=== PATIENT | male | born 1945 | race Caucasian/White ===

== ENCOUNTER → 2018-02-27 | Outpatient (CLI) | END | disposition home or self-care (01) ==

== ENCOUNTER 2018-10-13 21:33 | Emergency (ER) | payer MEDICARE, OTHER ==
[~2018-10-13] VITALS: Ht 165.1 cm; Wt 60.0 kg
[2018-10-13 21:34] VITALS: Ht 165.1 cm; Wt 60.0 kg
[2018-10-13] MEDS ORDERED: ONDANSETRON 4 MG INJ IV STA (23:40)
[2018-10-13] MEDS ORDERED: SOD CHLORIDE 0.9% 500 ML IV STA (23:40)
[2018-10-13] MEDS ORDERED: morphine 4 MG/ML VIAL IV STA (23:40)
[2018-10-14] MEDS ORDERED: morphine 4 MG/ML VIAL IV STA (00:19)
[2018-10-14] MEDS ORDERED: ONDANSETRON 4 MG INJ IV STA (00:19)
[2018-10-14] MEDS ORDERED: SOD CHLORIDE 0.9% 100 ML ONE (00:58)
[2018-10-14] MEDS ORDERED: IODIXANOL LOCM 100 ML BTL ONE (00:58)
[2018-10-14] MEDS ORDERED: HYDROmorphONE 0.5 MG/0.5 ML SYG IV STA (01:29)
[2018-10-14] MEDS ORDERED: PROM6.256 PO (02:20)
[2018-10-14] MEDS ORDERED: BENZ-5 PO (02:20)
[2018-10-14] MEDS ORDERED: ONDA8TAB83 PO (02:20)
[2018-10-14] MEDS ORDERED: TRAM50TA2 PO (02:20)
[2018-10-14] MEDS ORDERED: ALBU18HF INHALATION (02:20)
[2018-10-14] MEDS ORDERED: OMEP40CA6 PO (02:20)
[2018-10-14] MEDS ORDERED: ACYC800T PO (02:20)
[2018-10-14] MEDS ORDERED: METF500T9 PO (02:20)
[2018-10-14] MEDS ORDERED: MAGN400T27 PO (02:20)
[2018-10-14] MEDS ORDERED: ATRO INHALATION (02:21)
[2018-10-14] MEDS ORDERED: SITA100T11 PO (02:21)
[2018-10-14] MEDS ORDERED: DOCU-159 PO (02:21)
[2018-10-14] MEDS ORDERED: DIAZ5TAB PO (03:43)
[2018-10-14 03:55] VITALS: BP 108/63; PULSE 63; RESP 24
[2018-10-15] MEDS ORDERED: HYDR-4011 PO (12:27)
[2018-10-15] MEDS ORDERED: NALO4SPR NS (12:27)
--- NOTE | 2018-11-10 21:15 | ERD ---
ER Documentation Chief Complaint Chief Complaint SOB with upper back pain hx lymphoma HPI Is a 72-year-old male with a history of lymphoma, prior shortness of an upper back pain. Patient states that he has been getting mild short of breath. Denies fevers chills. Denies chest pain. Denies any other current complaints. Denies any palpitations. ROS All systems reviewed and are negative except as per history of present illness. Medications Home Meds Active Scripts Naloxone HCl nasal spray (Narcan 4 mg/0.1 mL nasal) 4 Mg [place], 4 MG NS .Q2-3MIN for OPIOID OVERDOSE, #2 SPRAY 0 Refills [place] 0.1 mL into one nostril. Repeat with second device into other nostril after 2-3 minutes if no or minimal response Prov:CEASAR STEARNS MD 10/15/18 Hydrocodone/Acetaminophen ([place] 5-325 Tablet) 1 Each Tablet, 1 TAB PO Q6H PRN for PAIN, #20 TAB Prov:CEASAR STEARNS MD 10/15/18 Diazepam* (Valium*) 5 Mg Tablet, 5 MG PO Q8 PRN for MUSCLE SPASMS, #10 TAB Prov:SAMUEL MONTES 10/14/18 Reported Medications Docusate Sodium* (Docusate Sodium*) 100 Mg Capsule, 100 MG PO BID, #60 CAP 10/14/18 Sitagliptin* (Januvia*) 100 Mg Tablet, 100 MG PO DAILY for 30 Days, #30 10/14/18 Ipratropium [place]* (Atrovent HFA*) 12.9 Gm Aer.w.adap, 2 PUFF INHALATION Q4H for SHORTNESS OF BREATH, #1 INHALER 10/14/18 Tramadol HCl (Tramadol HCl) 50 Mg Tablet, 50 MG PO Q6H for PAIN TK 1 TO 2 TABS PO Q 6 TO 8 H PRN FOR SEVERE PAIN 10/14/18 Metformin Hcl (Metformin Hcl ER) 500 Mg Tab.er.24h, 1000 MG PO BID for 90 Days, #360 10/14/18 Promethazine Hcl* (Phenergan* Liq) 6.25 Mg/5 Ml Syrup, 5 ML PO PRN for COUGH TK 5 ML PO Q 4 H PRN FOR COUGH 10/14/18 Omeprazole* (Omeprazole*) 40 Mg Capsule.dr, 40 MG PO DAILY for 90 Days, #90 10/14/18 Magnesium Oxide* (Mag-Oxide*) 400 Mg Tablet, 400 MG PO BID for 30 Days, #60 10/14/18 Benzonatate* (Benzonatate*) 100 Mg Capsule, 100 MG PO TID 10/14/18 Ondansetron Hcl* (Ondansetron Hcl*) 8 Mg Tablet, 8 MG PO Q6H 10/14/18 Acyclovir* (Acyclovir*) 800 Mg Tablet, 800 MG PO BID for 30 Days, #60 10/14/18 Albuterol Sulfate* (Ventolin HFA*) 18 Gm Hfa.aer.ad, 2 PUFF INHALATION Q4H, #1 INHALER 10/14/18 Allergies Allergies: Coded Allergies: Sulfa (Sulfonamide Antibiotics) (Verified Allergy, Unknown, 10/15/18) PMhx/Soc History of Surgery: Yes (open heart surgery, stent placement) Anesthesia Reaction: No Hx Neurological Disorder: No Hx Respiratory Disorders: Yes (Lung CA) Hx Cardiac Disorders: Yes Hx Psychiatric Problems: No Hx Miscellaneous Medical Probl: Yes (DM) Hx Alcohol Use: No Hx Substance Use: No Hx Tobacco Use: No Smoking Status: Former smoker Physical Exam Physical Exam Const: No acute distress Head: Atraumatic Eyes: Normal Conjunctiva ENT: Normal External Ears, Nose and Mouth. Neck: Full range of motion. No meningismus. Resp: Clear to auscultation bilaterally Cardio: Regular rate and rhythm, no murmurs Abd: Soft, non tender, non distended. Normal bowel sounds Skin: No petechiae or rashes Back: No midline or flank tenderness Ext: No cyanosis, or edema Neur: Awake and alert Psych: Normal Mood and Affect Results 24 hrs Laboratory Tests Test 10/13/18 23:40 10/13/18 23:56 10/13/18 23:57 10/14/18 02:27 Blood Gas Blood arterial Specimen Source Arterial Blood 10/13/2018 11:50: Date Drawn 03 PM Arterial Blood 7.446 pH (Temp corrected) Arterial Blood 39.8 mmhg pCO2 (Temp correct) Arterial Blood 74.6 mmHG pO2 (Temp corrected) Arterial Blood 26.8 mmol/L HCO3 Arterial Blood 2.6 mmol/L Base Excess Arterial Blood 94.4 mmHG Oxygen Saturatio n Fredo Test ACCEPTAB Arterial Blood Right Radial Gas Puncture Site Arterial 0.3 % Blood Carboxyhem oglobin Arterial Blood 0.2 % Methemoglobin Blood Gas A-a O2 27.5 mmHg Differential Oxyhemoglobin 93.9 % Percent Blood Gas 37.0 C Temperature Blood Gas Actual 20 Respiration Rate Blood Gas ROOM AIR Modality FiO2 21.0 % Blood Gas MM Notified Whom Blood Gas 10/14/2018 12:02: Notified Time 43 AM POC Venous 1.3 mmol/L 0.9 mmol/L Lactate White Blood 7.2 10^3/ul Count Red Blood Count 3.55 10^6/ul Hemoglobin 11.3 g/dl Hematocrit 35.8 % Mean Corpuscular 100.8 fl Volume Mean Corpuscular 31.8 pg Hemoglobin Mean Corpuscular 31.6 g/dl Hemoglobin Abbi nt Red Cell 20.6 % Distribution Width Platelet Count 153 10^3/UL Mean Platelet 11.5 fl Volume Immature 1.700 % Granulocytes % Neutrophils % % Segmented 41 % Neutrophils % (Manual) Band Neutrophils 1 % % (Manual) Lymphocytes % % Lymphocytes % 26 % (Manual) Reactive 3 % Lymphocytes % (Manual) Monocytes % % Monocytes % 26 % (Manual) Eosinophils % % Eosinophils % 3 % (Manual) Basophils % % Nucleated Red 0.0 /100WBC Blood Cells % Immature 0.120 10^3/ul Granulocytes # Neutrophils # 10^3/ul Neutrophils # 3.0 10^3/ul (Manual) Band Neutrophils 0.0 10^3/ul # Lymphocytes 1.8 10^3/ul (Manual) Lymphocytes # 10^3/ul Reactive 0.2 10^3/ul Lymphocytes # Monocytes # 10^3/ul Monocytes # 1.8 10^3/ul (Manual) Eosinophils # 10^3/ul Basophils # 10^3/ul Nucleated Red 10^3/ul Blood Cells # Platelet NORMAL Estimate Polychromasia 3+ Poikilocytosis 2+ Anisocytosis 1+ Macrocytosis 1+ Prothrombin Time 13.0 Sec Prothrombin Time 1.0 Ratio INR 0.97 International Normalized Ratio Activated 39.4 Sec Partial Thrombop last Time Sodium Level 139 mmol/L Potassium Level 4.1 mmol/L Chloride Level 101 mmol/L Carbon Dioxide 26 mmol/L Level Anion Gap 12 Blood Urea 22 mg/dl Nitrogen Creatinine 0.63 mg/dl Est Glomerular > 60 mL/min Filtrat Rate mL/min Glucose Level 210 mg/dl Calcium Level 9.7 mg/dl Total Bilirubin 0.2 mg/dl Direct Bilirubin 0.00 mg/dl Indirect 0.2 mg/dl Bilirubin Aspartate Amino 25 IU/L Transf (AST/SGOT ) Alanine 9 IU/L Aminotransferase (ALT/SGPT) Alkaline 197 IU/L Phosphatase Troponin I 0.077 ng/ml B-Type 1630 PG/ML Natriuretic Peptide Total Protein 7.4 g/dl Albumin 3.9 g/dl Globulin 3.50 g/dl Albumin/Globulin 1.11 Ratio Current Medications Medications Dose Sig/Butch Start Time Status Last (Trade) Ordered Route PRN Stop Time Admin Dose Reason Admin Sodium 500 ml @ Q1H STAT 10/13/18 DC 10/14/18 Chloride 500 mls/hr IV 23:40 00:34 10/14/18 00:39 Morphine 4 mg ONCE STAT 10/13/18 DC 10/14/18 Sulfate IV 23:40 00:34 (morphine) 10/13/18 23:42 Ondansetron 4 mg ONCE STAT 10/13/18 DC 10/14/18 HCl (Zofran IV 23:40 00:34 Inj) 10/13/18 23:42 Morphine 4 mg ONCE STAT 10/14/18 DC Sulfate IV 00:19 (morphine) 10/14/18 00:20 Ondansetron 4 mg ONCE STAT 10/14/18 DC HCl (Zofran IV 00:19 Inj) 10/14/18 00:20 Sodium 100 ml @ ud STK-MED 10/14/18 DC 10/14/18 Chloride ONCE .ROUTE 00:58 01:25 10/14/18 00:59 Iodixanol 100 ml STK-MED 10/14/18 DC 10/14/18 (Visipaque ONCE .ROUTE 00:58 01:25 Locm) 10/14/18 00:59 1 mg ONCE STAT 10/14/18 DC 10/14/18 Hydromorphone IV 01:29 03:10 HCl 10/14/18 01:30 (Dilaudid) Procedures/MDM EKG: Rate/Rhythm: [Normal Sinus Rhythm] QRS, ST, T-waves: [No changes consistent w/ acute ischemia] Impression: [No evidence of ischemia or arrhythmia] Chest X-ray 1V Interpreted by me: Soft Tissue: No acute abnormalities Bones: No acute abnormalities Mediastinum/Cardiac Silhouette/Lungs: [No acute abnormalities] Medical decision making: This very pleasant 9-year-old male comes her shortness of breath that is since resolved during his stay in the emergency department. CT shows no evidence of dissection or pulmonary embolism. At this point, patient feels much better is clinically stable for outpatient management. Patient will be discharged home. Departure Diagnosis: Primary Impression: Shortness of breath Condition: Stable Patient Instructions: Back Pain (Acute Or Chronic) Referrals: KATERIN CHURCHILL MD- (PCP) SAMUEL MONTES November 10, 2018 21:15
== END 2018-10-14 03:57 | disposition home or self-care (01) ==
LOC: E/R 21:33
DX: R06.02 Shortness of breath (principal); E11.9 Type 2 diabetes mellitus without complications; Z79.84 Long term (current) use of oral hypoglycemic drugs; Z85.118 Personal history of other malignant neoplasm of bronchus and lung; Z87.891 Personal history of nicotine dependence; Z98.61 Coronary angioplasty status
CPT/HCPCS: 36600; 71045; 71275; 80053; 82803; 83605; 83880; 84484; 85025; 85610; 85730; 93005; J1170; J2270; J2405; J7040; Q9967; 36415; 96374; 96375

== ENCOUNTER 2018-10-15 08:24 | Emergency (ER) | payer MEDICARE, OTHER ==
[~2018-10-15] VITALS: Ht 172.7 cm; Wt 58.0 kg
[~2018-10-15 08:24] MED LIST: ACYC800T PO; ALBU18HF INHALATION; ATRO INHALATION; BENZ-5 PO; DIAZ5TAB PO; DOCU-159 PO; MAGN400T27 PO; METF500T9 PO; OMEP40CA6 PO; ONDA8TAB83 PO; PROM6.256 PO; SITA100T11 PO; TRAM50TA2 PO
[2018-10-15 08:29] VITALS: Ht 172.7 cm; Wt 58.0 kg
[2018-10-15] MEDS ORDERED: HYDROmorphONE 1 MG/ML SYG IV STA (08:35)
[2018-10-15] MEDS ORDERED: ONDANSETRON 4 MG INJ IV STA (08:35)
--- NOTE | 2018-10-15 08:42 | ERD ---
ER Documentation Chief Complaint Chief Complaint FLANK PAIN,SOB, LAST CHEMO 3 WEEKS AGO HPI This is a 72-year-old male presents for evaluation of left-sided flank pain. He has history of lymphoma, and last received chemotherapy 3 weeks ago, he currently has a port. He was seen on October 13 for the same pain, at that time he had a cardiac workup which was negative, he also had a CT angiogram of the chest which was negative for evidence of PE. He has not a fever, the pain is recurrent. There are no alleviating or aggravating factors. ROS All systems reviewed and are negative except as per history of present illness. Medications Home Meds Active Scripts Diazepam* (Valium*) 5 Mg Tablet, 5 MG PO Q8 PRN for MUSCLE SPASMS, #10 TAB Prov:SAMUEL MONTESReyes 10/14/18 Reported Medications Docusate Sodium* (Docusate Sodium*) 100 Mg Capsule, 100 MG PO BID, #60 CAP 10/14/18 Sitagliptin* (Januvia*) 100 Mg Tablet, 100 MG PO DAILY for 30 Days, #30 10/14/18 Ipratropium [place]* (Atrovent HFA*) 12.9 Gm Aer.w.adap, 2 PUFF INHALATION Q4H for SHORTNESS OF BREATH, #1 INHALER 10/14/18 Tramadol HCl (Tramadol HCl) 50 Mg Tablet, 50 MG PO Q6H for PAIN TK 1 TO 2 TABS PO Q 6 TO 8 H PRN FOR SEVERE PAIN 10/14/18 Metformin Hcl (Metformin Hcl ER) 500 Mg Tab.er.24h, 1000 MG PO BID for 90 Days, #360 10/14/18 Promethazine Hcl* (Phenergan* Liq) 6.25 Mg/5 Ml Syrup, 5 ML PO PRN for COUGH TK 5 ML PO Q 4 H PRN FOR COUGH 10/14/18 Omeprazole* (Omeprazole*) 40 Mg Capsule.dr, 40 MG PO DAILY for 90 Days, #90 10/14/18 Magnesium Oxide* (Mag-Oxide*) 400 Mg Tablet, 400 MG PO BID for 30 Days, #60 10/14/18 Benzonatate* (Benzonatate*) 100 Mg Capsule, 100 MG PO TID 10/14/18 Ondansetron Hcl* (Ondansetron Hcl*) 8 Mg Tablet, 8 MG PO Q6H 10/14/18 Acyclovir* (Acyclovir*) 800 Mg Tablet, 800 MG PO BID for 30 Days, #60 10/14/18 Albuterol Sulfate* (Ventolin HFA*) 18 Gm Hfa.aer.ad, 2 PUFF INHALATION Q4H, #1 INHALER 10/14/18 Allergies Allergies: Coded Allergies: Sulfa (Sulfonamide Antibiotics) (Verified Allergy, Unknown, 10/15/18) PMhx/Soc History of Surgery: Yes (open heart surgery, stent placement) Anesthesia Reaction: No Hx Neurological Disorder: No Hx Respiratory Disorders: Yes (Lung CA) Hx Cardiac Disorders: Yes Hx Psychiatric Problems: No Hx Miscellaneous Medical Probl: Yes (DM, LYMPHOMA) Hx Alcohol Use: No Hx Substance Use: No Hx Tobacco Use: No Smoking Status: Never smoker Physical Exam Vitals Vital Signs Date Temp Pulse Resp B/P (MAP) Pulse Ox O2 O2 Flow FiO2 Time Delivery Rate 10/15/18 99.5 67 36 143/67 95 08:29 (92) Physical Exam Const: No acute distress Head: Atraumatic Eyes: Normal Conjunctiva ENT: Normal External Ears, Nose and Mouth. Neck: Full range of motion. No meningismus. Resp: Clear to auscultation bilaterally Cardio: Regular rate and rhythm, no murmurs Abd: Soft, non tender, non distended. Normal bowel sounds Skin: No petechiae or rashes Back: No midline or flank tenderness Ext: No cyanosis, or edema Neur: Awake and alert Psych: Normal Mood and Affect Result Diagram: 10/15/18 0850 10/15/18 0850 Results 24 hrs Laboratory Tests Test 10/15/18 08:50 White Blood Count 5.2 10^3/ul Red Blood Count 3.26 10^6/ul Hemoglobin 10.6 g/dl Hematocrit 33.9 % Mean Corpuscular Volume 104.0 fl Mean Corpuscular Hemoglobin 32.5 pg Mean Corpuscular Hemoglobin Concent 31.3 g/dl Red Cell Distribution Width 20.6 % Platelet Count 132 10^3/UL Mean Platelet Volume 11.8 fl Immature Granulocytes % 2.500 % Neutrophils % 40.9 % Lymphocytes % 33.1 % Monocytes % 13.1 % Eosinophils % 9.4 % Basophils % 1.0 % Nucleated Red Blood Cells % 0.0 /100WBC Immature Granulocytes # 0.130 10^3/ul Neutrophils # 2.1 10^3/ul Lymphocytes # 1.7 10^3/ul Monocytes # 0.7 10^3/ul Eosinophils # 0.5 10^3/ul Basophils # 0.1 10^3/ul Nucleated Red Blood Cells # 0.0 10^3/ul Prothrombin Time 13.3 Sec Prothrombin Time Ratio 1.0 INR International Normalized Ratio 1.00 Sodium Level 138 mmol/L Potassium Level 4.1 mmol/L Chloride Level 101 mmol/L Carbon Dioxide Level 29 mmol/L Anion Gap 8 Blood Urea Nitrogen 16 mg/dl Creatinine 0.62 mg/dl Est Glomerular Filtrat Rate mL/min > 60 mL/min Glucose Level 175 mg/dl Calcium Level 9.7 mg/dl Total Bilirubin 0.2 mg/dl Direct Bilirubin 0.00 mg/dl Indirect Bilirubin 0.2 mg/dl Aspartate Amino Transf (AST/SGOT) 22 IU/L Alanine Aminotransferase (ALT/SGPT) 12 IU/L Alkaline Phosphatase 178 IU/L Troponin I 0.087 ng/ml Total Protein 7.1 g/dl Albumin 3.7 g/dl Globulin 3.40 g/dl Albumin/Globulin Ratio 1.08 Lipase 70 U/L Current Medications Medications Dose Sig/Btuch Start Time Status Last (Trade) Ordered Route PRN Stop Time Admin Dose Reason Admin 1 mg ONCE STAT 10/15/18 DC 10/15/18 Hydromorphone IV 08:35 08:54 HCl 10/15/18 08:37 (Dilaudid) Ondansetron 4 mg ONCE STAT 10/15/18 DC 10/15/18 HCl (Zofran IV 08:35 08:54 Inj) 10/15/18 08:37 0.5 mg ONCE STAT 10/15/18 DC Hydromorphone IV 11:57 HCl 10/15/18 11:59 (Dilaudid) Procedures/MDM This is a 72-year-old male who presents for evaluation of of left-sided flank/chest pain. The patient's pain is intermittent and feels like a spasm- like pain. He has a history of lymphoma, and this may be malignancy related, he was seen here 2 days ago for the same pain, he had a cardiac evaluation, and also had a CT angiogram for pulmonary embolus of these were negative. His chest x-ray showed some mild volume overload, but no significant changes compared to his previous CT scan, I discussed findings with the patient, and I offered admission for pain control, the patient wished to go home, with a prescription for pain medication, Okay was provided along with a Narcan prescription. Additionally I attempted to contact his oncologist, to ensure follow-up a message was left, but we were unable to get a hold. I did encourage him to return to the ED for any pain at all, or if he wished to be admitted, the patient agreed to this, at discharge he was in no distress. EKG: Rate/Rhythm: Normal Sinus Rhythm QRS, ST, T-waves: No changes consistent w/ acute ischemia Impression: No evidence of ischemia or arrhythmia Departure Diagnosis: Primary Impression: Flank pain Additional Impression: Lymphoma Hodgkin lymphoma type: unspecified type Lymphoma site: unspecified region Condition: Stable CEASAR STEARNS MD Oct 15, 2018 08:42
[2018-10-15] MEDS ORDERED: HYDROmorphONE 0.5 MG/0.5 ML SYG IV STA (11:57)
[2018-10-15] MEDS ORDERED: HYDR-4011 PO (12:27)
[2018-10-15] MEDS ORDERED: NALO4SPR NS (12:27)
[2018-10-15 12:33] VITALS: BP 120/71; PULSE 80; RESP 18
== END 2018-10-15 12:34 | disposition home or self-care (01) ==
LOC: E/R 08:24
DX: C85.90 Non-Hodgkin lymphoma, unspecified, unspecified site (principal); E11.9 Type 2 diabetes mellitus without complications; Z79.84 Long term (current) use of oral hypoglycemic drugs; Z85.118 Personal history of other malignant neoplasm of bronchus and lung; Z98.61 Coronary angioplasty status
CPT/HCPCS: 71045; 80053; 83690; 84484; 85025; 85610; 93005; 96374; 96375; 96376; 99285; J1170; J2405

== ENCOUNTER 2018-12-20 17:33 | Emergency (ER) | payer MEDICARE, OTHER ==
[~2018-12-20] VITALS: Ht 170.2 cm; Wt 54.5 kg
[2018-12-20 17:33] VITALS: Ht 170.2 cm; Wt 54.5 kg
[~2018-12-20 17:33] MED LIST changes: +HYDR-4011 PO; +NALO4SPR NS
[2018-12-20] MEDS ORDERED: PRED20TA PO (17:50)
[2018-12-20] MEDS ORDERED: GLIP10TA14 PO (17:50)
[2018-12-20] MEDS ORDERED: OXYC5CAP17 PO (17:51)
[2018-12-20] MEDS ORDERED: SOD CHLORIDE 0.9% 1,000 ML IV STA (17:51)
[2018-12-20] MEDS ORDERED: LENA20CA PO (17:51)
[2018-12-20] MEDS ORDERED: LORA1TAB PO (17:52)
--- NOTE | 2018-12-20 18:01 | ERD ---
ER Documentation Chief Complaint Chief Complaint Constipation with LLQ abdominal cramping X 9 days HPI 73-year-old male with a history of lymphoma on chemotherapy and chronic opioids presenting with complaints of constipation for the past 9 days. He has associated diffuse abdominal pain with left lower quadrant cramping. He was t old by his physician to use an enema yesterday. He tried that without any relief. He also tried magnesium citrate today without any bowel movement. He denies any nausea, vomiting, fever, chills, dysuria or hematuria. No history of abdominal surgeries. He has chronic problems with constipation secondary to his medications. He is on multiple laxatives and they are not helping. He is complaining of cramping pain, 9 out of 10, radiating to his back. No alleviating factors. He does have poor p.o. intake and has had significant weight loss over the past few months due to his cancer. ROS All systems reviewed and are negative except as per history of present illness. Medications Home Meds Active Scripts Lactulose* (Lactulose*) 20 Gm/30 Ml Solution, 20 GM PO Q6H for CONSTIPATION, #500 ML Prov:ANGUS ARENAS MD 12/20/18 Hydrocodone/Acetaminophen ([place] 5-325 Tablet) 1 Each Tablet, 1 TAB PO Q6H PRN for PAIN, #20 TAB Prov:CEASAR STEARNS MD 10/15/18 Reported Medications Lorazepam* (Lorazepam*) 1 Mg Tablet, 1 MG PO Q8 PRN for ANXIETY, #60 TAB 12/20/18 Oxycodone Hcl* (IR) (Oxycodone Hcl*) 5 Mg Capsule, 5 MG PO Q4H PRN for PAIN, CAP 12/20/18 Lenalidomide (REVLIMID) 20 Mg Capsule, 10 MG PO DAILY, CAP 12/20/18 Prednisone* (Prednisone*) 20 Mg Tab, 20 MG PO DAILY, TAB 12/20/18 Glipizide* (Glipizide*) 10 Mg Tablet, 10 MG PO BID, TAB 12/20/18 Docusate Sodium* (Docusate Sodium*) 100 Mg Capsule, 100 MG PO BID, #60 CAP 10/14/18 Sitagliptin* (Januvia*) 100 Mg Tablet, 100 MG PO DAILY for 30 Days, #30 10/14/18 Ipratropium [place]* (Atrovent HFA*) 12.9 Gm Aer.w.adap, 2 PUFF INHALATION Q4H for SHORTNESS OF BREATH, #1 INHALER 10/14/18 Metformin Hcl (Metformin Hcl ER) 500 Mg Tab.er.24h, 1000 MG PO BID for 90 Days, #360 10/14/18 Promethazine Hcl* (Phenergan* Liq) 6.25 Mg/5 Ml Syrup, 5 ML PO PRN for COUGH TK 5 ML PO Q 4 H PRN FOR COUGH 10/14/18 Omeprazole* (Omeprazole*) 40 Mg Capsule.dr, 40 MG PO DAILY for 90 Days, #90 10/14/18 Magnesium Oxide* (Mag-Oxide*) 400 Mg Tablet, 400 MG PO BID for 30 Days, #60 10/14/18 Benzonatate* (Benzonatate*) 100 Mg Capsule, 100 MG PO TID 10/14/18 Ondansetron Hcl* (Ondansetron Hcl*) 8 Mg Tablet, 8 MG PO Q6H 10/14/18 Acyclovir* (Acyclovir*) 800 Mg Tablet, 800 MG PO BID for 30 Days, #60 10/14/18 Albuterol Sulfate* (Ventolin HFA*) 18 Gm Hfa.aer.ad, 2 PUFF INHALATION Q4H, #1 INHALER 10/14/18 Discontinued Reported Medications Tramadol HCl (Tramadol HCl) 50 Mg Tablet, 50 MG PO Q6H for PAIN TK 1 TO 2 TABS PO Q 6 TO 8 H PRN FOR SEVERE PAIN 10/14/18 Discontinued Scripts Naloxone HCl nasal spray (Narcan 4 mg/0.1 mL nasal) 4 Mg [place], 4 MG NS .Q2-3MIN for OPIOID OVERDOSE, #2 SPRAY 0 Refills [place] 0.1 mL into one nostril. Repeat with second device into other nostril after 2-3 minutes if no or minimal response Prov:CEASAR STEARNS MD 10/15/18 Diazepam* (Valium*) 5 Mg Tablet, 5 MG PO Q8 PRN for MUSCLE SPASMS, #10 TAB Prov:SAMUEL MONTES 10/14/18 Allergies Allergies: Coded Allergies: Sulfa (Sulfonamide Antibiotics) (Verified Allergy, Unknown, 10/15/18) PMhx/Soc History of Surgery: Yes (open heart surgery, stent placement, pacemaker) Anesthesia Reaction: No Hx Neurological Disorder: No Hx Respiratory Disorders: Yes (Lung CA) Hx Cardiac Disorders: Yes (heart CA) Hx Psychiatric Problems: No Hx Miscellaneous Medical Probl: Yes (DM, LYMPHOMA) Hx Alcohol Use: No Hx Substance Use: No Hx Tobacco Use: No Smoking Status: Never smoker FmHx Family History: No coronary disease Physical Exam Vitals Vital Signs Date Temp Pulse Resp B/P (MAP) Pulse Ox O2 O2 Flow FiO2 Time Delivery Rate 12/20/18 68 26 106/73 97 Room Air 18:25 (84) 12/20/18 97.4 65 26 106/73 98 17:33 (84) Physical Exam Const: Chronically ill-appearing, nontoxic, in mild distress due to pain Head: Atraumatic Eyes: Normal Conjunctiva ENT: Normal External Ears, Nose and Mouth. Neck: Full range of motion. No meningismus. Resp: Clear to auscultation bilaterally Cardio: Regular rate and rhythm, no murmurs Abd: Soft, left lower quadrant tenderness to palpation with voluntary guardin g but no rebound. Non distended. No masses. Normal bowel sounds Skin: No petechiae or rashes Back: No midline or flank tenderness Ext: No cyanosis, or edema Neur: Awake and alert Psych: Normal Mood and Affect Result Diagram: 12/20/18175812/20/181758 Results 24 hrs Laboratory Tests Test 12/20/18 17:59 White Blood Count 2.1 10^3/ul Red Blood Count 2.61 10^6/ul Hemoglobin 8.7 g/dl Hematocrit 27.7 % Mean Corpuscular Volume 106.1 fl Mean Corpuscular Hemoglobin 33.3 pg Mean Corpuscular Hemoglobin Concent 31.4 g/dl Red Cell Distribution Width 18.8 % Platelet Count 67 10^3/UL Mean Platelet Volume 11.3 fl Immature Granulocytes % 0.500 % Neutrophils % % Lymphocytes % % Monocytes % % Eosinophils % % Basophils % % Nucleated Red Blood Cells % 0.0 /100WBC Immature Granulocytes # 0.010 10^3/ul Neutrophils # 10^3/ul Lymphocytes # 10^3/ul Monocytes # 10^3/ul Eosinophils # 10^3/ul Basophils # 10^3/ul Nucleated Red Blood Cells # 10^3/ul Sodium Level 136 mmol/L Potassium Level 4.2 mmol/L Chloride Level 100 mmol/L Carbon Dioxide Level 30 mmol/L Anion Gap 6 Blood Urea Nitrogen 13 mg/dl Creatinine 0.49 mg/dl Est Glomerular Filtrat Rate mL/min mL/min Glucose Level 175 mg/dl Calcium Level 8.6 mg/dl Total Bilirubin 0.2 mg/dl Direct Bilirubin 0.00 mg/dl Indirect Bilirubin 0.2 mg/dl Aspartate Amino Transf (AST/SGOT) 33 IU/L Alanine Aminotransferase (ALT/SGPT) 29 IU/L Alkaline Phosphatase 109 IU/L Total Protein 6.0 g/dl Albumin 3.1 g/dl Globulin 2.90 g/dl Albumin/Globulin Ratio 1.06 Current Medications Medications Dose Sig/Butch Start Time Status Last (Trade) Ordered Route PRN Stop Time Admin Dose Reason Admin Sodium 1,000 ml @ Q1H STAT 12/20/18 DC 12/20/18 Chloride 1,000 mls/hr IV 17:51 18:06 12/20/18 18:50 Lactulose 20 gm ONCE ONCE 12/20/18 DC (Enulose) PO 19:30 12/20/18 19:31 Procedures/MDM EMERGENT LABS AND DIAGNOSTIC STUDIES: Lab Results above were reviewed and interpreted by me. CBC: Pancytopenia, likely related to chemotherapy CMP: No evidence of clinically significant electrolyte abnormality, acidosis, renal failure, hypoglycemia, liver disease, or biliary obstruction Radiology Results as interpreted by Radiology below were reviewed by Khoi Arenas MD: CT Abdomen/Pelvis: IMPRESSION: 1. New pacer lead placement in the right ventricle terminating at the apex and interventricular septum. Clinical correlation with surgical report recommended to confirm intended lead placement. 2. Distension of the IVC with development of mild diffuse ascites and anasarca, possibly reflecting congestion. Stable trace right pleural effusion. 3. Stable borderline cardiomegaly with mitral valve annular calcifications which may reflect valvular stenosis. Redemonstrated post sternotomy changes with coronary artery calcifications and atherosclerosis. 4. Incompletely distended gallbladder with nonspecific trace pericholecystic fluid in the presence of ascites. If there is clinical suspicion for acute cholecystitis, this can be better evaluated with right upper quadrant ultrasound or nuclear medicine HIDA scan. 5. Moderate stool burden throughout the colon and rectum, consistent with the given history of constipation. 6. Mild sigmoid diverticulosis without evidence of acute diverticulitis. The bowel is unobstructed without evidence of perforation or abscess, and the appendix is nondilated. 7. Mild scattered punctate bilateral nonobstructive nephrolithiasis without hydronephrosis. 8. Mild prostatomegaly slightly impressing on the bladder neck. Correlation with clinical exam and PSA values recommended. 9. Stable multiple scattered 4-6 mm pulmonary nodules in the basilar right middle and right lower lobe with stable 7 mm nodule demonstrating irregular margins in the posterior basilar left lower lobe. Clinical correlation recomm ended with consideration for follow-up imaging by Fleischner Society recommendations. Initial Nursing notes reviewed. Previous Medical Records requested via the Electronic Health Record. EMERGENCY DEPARTMENT COURSE / MEDICAL DECISION MAKING: Patient is presenting with likely opioid induced constipation. Vitals are unremarkable. He is afebrile. CT was done to evaluate for possible mechanical obstruction. However CT only showed constipation and some other nonspecific and nonacute findings. Patient was treated with lactulose here and a prescription for lactulose was given for home. He has follow-up with his doctor in the next 3 days. I recommended he discuss with his primary care doctor going on medications to treat opioid-induced constipation. Return precautions were discussed. Patient was discharged in stable condition. Departure Diagnosis: Primary Impression: Constipation Constipation type: drug induced constipation Qualified Codes: K59.03 - Drug induced constipation Additional Impression: Pancytopenia Condition: ANGUS Oliver MD Dec 20, 2018 18:01
[2018-12-20] MEDS ORDERED: LACT20SO2 PO (19:20)
[2018-12-20] MEDS ORDERED: LACTULOSE 30ML CUP PO ONE (19:30)
[2018-12-20 19:48] VITALS: BP 110/81; PULSE 68; RESP 22
== END 2018-12-20 19:49 | disposition home or self-care (01) ==
LOC: E/R 17:33
DX: K59.03 Drug induced constipation (principal); E11.9 Type 2 diabetes mellitus without complications; D61.818 Other pancytopenia; Z79.84 Long term (current) use of oral hypoglycemic drugs; Z85.118 Personal history of other malignant neoplasm of bronchus and lung; Z95.0 Presence of cardiac pacemaker; Z98.61 Coronary angioplasty status
CPT/HCPCS: 36415; 74176; 80053; 85025; 99285; J7030